=== PATIENT | male | born 1990 | race Caucasian/White ===

== ENCOUNTER 2022-05-29 20:06 | Inpatient (IN) | payer OTHER ==
[~2022-05-29] VITALS: Ht 175.3 cm; Wt 72.6 kg
[2022-05-29 22:14] LABS: HEMOGLOBIN 10.3 gm/dl (14.0-17.5); RED BLOOD COUNT 3.7 M/UL (4.20-5.50); WHITE BLOOD COUNT 9.6 K/UL (4.5-11.0)
[2022-05-29 22:32] LABS: BUN/CREATININE RATIO 8 (0-10)
[2022-05-30 08:09] LABS: HEMOGLOBIN 10.2 gm/dl (14.0-17.5); RED BLOOD COUNT 3.7 M/UL (4.20-5.50); WHITE BLOOD COUNT 10.7 K/UL (4.5-11.0)
[2022-05-30 08:13] LABS: BUN/CREATININE RATIO 11 (0-10)
[2022-05-30] MEDS ORDERED: BUPRENORPHIN-N1 EACH SL (09:56)
[2022-05-30 11:09] LABS: CANDIDA ALBICANS Not Detected (Negative); CANDIDA KRUSEI Not Detected (Negative); CANDIDA TROPICALIS Not Detected (Negative); ESCHERICHIA COLI Not Detected (Negative); HAEMOPHILUS INFLUENZAE Not Detected (Negative); KLEBSIELLA OXYTOCA Not Detected (Negative); KLEBSIELLA PNEUMONIAE Not Detected (Negative); KPC-CARBAPENEM-RESISTANCE GENE Not Detected (Negative); PROTEUS Not Detected (Negative); PSEUDOMONAS AERUGINOSA Not Detected (Negative); SERRATIA MARCESANS Not Detected (Negative); STREP AGALACTIAE (GROUP B) Not Detected (Negative); STREP PYOGENES (GROUP A) Not Detected (Negative); STREPTOCOCCUS Not Detected (Negative); vanA/B (VANCOMYCIN RESIST GENE Not Detected (Negative)
[2022-05-30 12:24] LABS: STAPHYLOCOCCUS DETECTED (Negative); STAPHYLOCOCCUS AUREUS DETECTED (Negative)
[2022-05-31 06:25] LABS: HEMOGLOBIN 10.9 gm/dl (14.0-17.5); RED BLOOD COUNT 3.99 M/UL (4.20-5.50)
[2022-05-31 06:26] LABS: WHITE BLOOD COUNT 13.7 K/UL (4.5-11.0)
[2022-05-31 06:39] LABS: BUN/CREATININE RATIO 11 (0-10)
[2022-06-01 06:10] LABS: HEMOGLOBIN 9.7 gm/dl (14.0-17.5)
[2022-06-01 06:12] LABS: RED BLOOD COUNT 3.51 M/UL (4.20-5.50); WHITE BLOOD COUNT 9.8 K/UL (4.5-11.0)
[2022-06-01 09:48] LABS: BUN/CREATININE RATIO 9 (0-10)
[2022-06-02 06:16] LABS: HEMOGLOBIN 9.9 gm/dl (14.0-17.5); RED BLOOD COUNT 3.62 M/UL (4.20-5.50); WHITE BLOOD COUNT 7.9 K/UL (4.5-11.0)
[2022-06-02 07:13] LABS: BUN/CREATININE RATIO 10 (0-10)
[2022-06-03 07:04] LABS: HEMOGLOBIN 9.9 gm/dl (14.0-17.5); RED BLOOD COUNT 3.62 M/UL (4.20-5.50); WHITE BLOOD COUNT 7.1 K/UL (4.5-11.0)
[2022-06-03 07:22] LABS: BUN/CREATININE RATIO 11 (0-10)
--- NOTE | 2022-06-03 08:52 | NUR ---
SPOKE TO PATIENT ABOUT LEAVING AGAINST MEDICAL ADVICE. INFORMD HIM THAT HE STILL NEEDED TREATMENT FOR HIS SHOULDER BUT HE REFUSED SAID HE DID NOT WANT STAY. I ADVISED HIM IF HE GOT WORSE TO COME BACK BUT HE STILL SAID HE DID NOT WANT TO BE HERE AND WOULD BE LEAVING WHEN HE GOT HIS SHOES ON. AMA FORM SIGNED BY PATIENT.
== END 2022-06-03 08:58 | disposition left against medical advice (07) | DRG 872 ==
LOC: ER1 20:06 → M/S 23:22 → CDU 23:22 → M/S 05-30 00:25
PROVIDERS: Internal Medicine; Physician Assistant; ADMIT Internal Medicine
PROC: 3E03329 Introduction of Other Anti-infective into Peripheral Vein, Percutaneous Approach (ICD-10-PCS; 2022-05-29)
PROC: B24BZZZ Ultrasonography of Heart with Aorta (ICD-10-PCS; principal; 2022-05-30)
PROC: 02HV33Z Insertion of Infusion Device into Superior Vena Cava, Percutaneous Approach (ICD-10-PCS; 2022-05-31)
DX: A41.02 Sepsis due to Methicillin resistant Staphylococcus aureus (principal); F11.20 Opioid dependence, uncomplicated; M00.9 Pyogenic arthritis, unspecified; I76 Septic arterial embolism; F17.200 Nicotine dependence, unspecified, uncomplicated; Z79.899 Other long term (current) drug therapy; Z53.29 Procedure and treatment not carried out because of patient's decision for other reasons
CPT/HCPCS: ECHO; 36415; 71045; 73030; 73120; 73201; 73218; 80048; 80053; 80202; 80307; 81001; 82550; 82553; 83605; 83735; 83880; 84100; 84132; 84484; 85025; 85027; 85610; 85652; 85730; 86140; 87040; 87077; 87086; 87150; 87186; 93005; 93306; 96365; 96367; 96375; 99285; C1751; J1200; J1650; J1885; J1956; J2250; J2310; J2543; J3010; J3370; J7030; J7040; J7070; Q9967